=== PATIENT | male | born 1955 | race Caucasian/White ===

== ENCOUNTER 2020-12-04 12:27 | Emergency (ER) | payer OTHER, MEDICARE, MEDICAID ==
[~2020-12-04] VITALS: Ht 177.8 cm; Wt 82.3 kg
[~2020-12-04 12:27] MED LIST: CLIN-97 PO; HYDR-3964 PO; MIRT-116 PO
[2020-12-04 13:21] VITALS: BP 141/77
--- NOTE | 2020-12-04 15:30 | NUR ---
Note quynh in ED - 12/04/20 at 1632 by EMELY Patient to call patient at listed number with no answer. Left a voicemail to call ED back.
--- NOTE | 2020-12-04 16:32 | NUR ---
Attempted to call patient at listed number with no answer. Left a voicemail to call ED back.
== END 2020-12-04 18:20 | disposition left against medical advice (07) ==
LOC: ER 12:28
DX: M79.605 Pain in left leg (principal); Z53.21 Procedure and treatment not carried out due to patient leaving prior to being seen by health care provider